=== PATIENT | female | born 1925 | race Caucasian/White ===

== ENCOUNTER 2016-08-04 19:53 | Inpatient (IN) | payer OTHER ==
[2016-08-04] MEDS ORDERED: TYLENOL PO ONE (19:59)
[2016-08-04] MEDS ORDERED: TYLENOL ONE (20:00)
--- NOTE | 2016-08-04 20:15 | PROVIDER DOCUMENTATION ---
HPI-Fever - General Chief Complaint: Fever Stated Complaint: fever Time Seen by Provider: 08/04/16 20:05 Source: patient Allergies/Adverse Reactions: Patient Allergies Allergy/AdvReac Type Severity Reaction Status Date / Time Penicillins Allergy Severe ANAPHYLAXIS Verified 10/29/15 12:57 tetanus and diphtheria Allergy Severe ANAPHYLAXIS Verified 10/29/15 12:57 toxoids [Tetanus&Diphtheria Toxoid] aspirin AdvReac Mild NAUSEA Verified 10/29/15 12:57 Home Medications: Home Medication List Medication Instructions Recorded Confirmed Last Taken Type LISINOpril [Prinivil] 40 mg PO DAILY 08/08/13 11/02/15 11/02/15 05:30 History Bone On Bone 1 each PO DAILY 10/29/15 11/02/15 10/31/15 09:00 History Cholecalciferol (Vitamin D3) 1,000 unit PO DAILY 10/29/15 11/02/15 10/31/15 09: 00 History [Vitamin D3] [place]-3 Fatty Acids/Fish Oil 1 each PO DAILY 10/29/15 11/02/15 10/31/15 09:00 History [[place] 3 1,000 mg Softgel] Omeprazole 40 mg PO DAILY 10/29/15 11/02/15 10/30/15 08:00 History Acetaminophen [Tylenol] 1,000 mg PO Q6H #0 tablet 11/05/15 Unknown Rx Celecoxib [Celebrex] 200 mg PO BID #60 capsule 11/05/15 Unknown Rx Docusate Sodium [Colace] 100 mg PO BID #0 capsule 11/05/15 Unknown Rx Oxycodone I.r. [Oxy Ir] 5 - 10 mg PO Q3H PRN PRN #60 11/05/15 Unknown Rx capsule Pregabalin [Lyrica] 75 mg PO BID #60 capsule 11/05/15 Unknown Rx Rivaroxaban [Xarelto] 10 mg PO Q24H #14 tablet 11/05/15 Unknown Rx Tramadol [Ultram] 100 mg PO Q6H #60 tablet 11/05/15 Unknown Rx - History of Present Illness-Fever Nature of Presenting Problem: Daughter states that pt had a sore throat 3 days ago and was taking DayQuil and NyQuil. Sore throat resolved and pt developed a cough yesterday. Pt took Musinex this morning at 0800. Daughter called around noon to check on pt and pt was shaking. Daughter told her to take a spoon of peanut butter and eat it to see if it would help and pt felt better. Daughter called pt back later this evening around 1800 and states that she did not sound right. Daughter states that she was weak and she could not get up. Fever Severity/Quality: reports: greater than 100.5 F Timing: reports: still present Severity: reports: mild Context: reports: none Recent Illness?: reports: none Cognitive Baseline: alert, oriented x3 Modifying Factors: improves with: nothing Associated Symptoms: reports: fever/chills, weakness Similar Symptoms Previously?: No Recently seen or treated by another doctor?: No Review of Systems - Adult - REVIEW OF SYSTEMS - ADULT Constitutional: reports: fever. denies: chills Eyes: reports: no symptoms reported Ears, Nose, Mouth & Throat: reports: no symptoms reported Cardiovascular: reports: no symptoms reported Respiratory: denies: cough, shortness of breath Gastrointestinal: denies: abdominal pain, nausea, vomiting Genitourinary: denies: dysuria, hematuria Musculoskeletal: reports: muscle weakness. denies: muscle aches Integumentary: denies: skin sores/ulcer, skin thickening Neurological: reports: no symptoms reported Psychiatric: reports: no symptoms reported Endocrine: reports: no symptoms reported Hematologic/Lymphatic: reports: no symptoms reported Allergic/Immunologic: reports: no symptoms reported All Other Systems: Reviewed and Negative Past History - Adult - PAST MEDICAL HISTORY-ADULT Review of Records: reports: Nursing Assessment Review, Medications Reviewed Major Childhood Illnesses: reports: denies history Cardiovascular: reports: HTN Gastrointestinal: reports: GERD Endocrine/Immune: reports: Diabetes, anemia - PRIOR SURGERIES/PROCEDURES Surgical/Procedure History: reports: appendectomy, hysterectomy, tonsillectomy - PRIOR HOSPITALIZATIONS Prior Hospitalizations: reports: none - IMMUNIZATION STATUS Childhood Immunizations: See Nurse Assessment Flu Vaccine: See Nurse Assessment - FAMILY HISTORY Family History: reviewed, not pertinent Physical Exam-General - PHYSICAL EXAM-ADULT Initial Vital Signs Reviewed: Yes - CONSTITUTIONAL General Appearance: appears well, alert, no apparent distress - RESPIRATORY Respiratory: chest non-tender, lungs clear, normal breath sounds - CARDIOVASCULAR Cardiovascular: normal peripheral pulses, regular rate, rhythm, no edema - SKIN Integumentary: normal color, normal turgor, warm/dry - NEUROLOGIC Neurologic: other (facial and upper extremity tremors) - PSYCHIATRIC Psych/Mental Status: normal mood/affect, normal thought content, normal thought process, oriented x 3 Progress - PLAN OF CARE/RESULTS Progress/Plan/Lab Results: plan of care: labs, imaging, medications, EKG Orders Category Date Time Status Cardiac Monitoring DIRECTED Care 08/04/16 20:18 Active Oxygen Therapy- ED Nursing DIRECTED Care 08/04/16 20:18 Active Saline Loc NOW Care 08/04/16 20:18 Active CHEST-2 VIEWS [RAD] Stat Exams 08/04/16 20:18 Taken HEAD W/O CONTRAST [CT] Stat Exams 08/04/16 20:19 Taken XRAY HIP W/PELVIS BILAT 3-4VWS [RAD] Stat Exams 08/04/16 20:46 Taken CBC WITH ELECTRONIC DIFF [HEME] Stat Lab 08/04/16 19:55 Completed CK PROFILE [SP CHEM] Stat Lab 08/04/16 19:55 Completed COMPREHENSIVE METABOLIC PANEL [CHEM] Stat Lab 08/04/16 19:[address] Stat Lab 08/04/16 19:55 Completed MAGNESIUM [CHEM] Stat Lab 08/04/16 19:55 Completed PRO B-NATRIURETIC PEPTIDE Stat Lab 08/04/16 19:[address] Com[address]IME WITH INR [address] [COAG] Stat Lab 08/04/16 19:[address] [COAG] Stat Lab 08/04/16 19:55 Completed TROPONIN T Stat Lab 08/04/16 19:55 Completed UA [URINALYSIS PL W/POSS RFLX CULT] [URINALYSIS] Stat Lab 08/04/16 20:30 Completed URINE CULTURE [RM] Routine Lab 08/04/16 21:13 Ordered Acetaminophen [Tylenol] Med 08/04/16 20:00 Discontinued 650 mg .ROUTE .STK-MED ONE Acetaminophen [Tylenol] Med 08/04/16 19:59 Discontinued 650 mg PO NOW ONE EKG [EKG] Stat Ther 08/04/16 20:18 Draft Laboratory Tests 08/04/16 08/04/16 08/04/16 19:55 19:55 19:55 WBC RBC Hgb Hct MCV MCH MCHC RDW Std Deviation Plt Count MPV Immature Gran % (Auto) Neut % (Auto) Lymph % (Auto) [place] % (Auto) Eos % (Auto) Baso % (Auto) Immature Gran # (Auto) Neut # (Auto) Lymph # (Auto) [place] # (Auto) Eos # (Auto) Baso # (Auto) Segmented Neutrophils Band Neutrophils Lymphocytes Monocytes Atypical Lymphocytes PT INR APTT (Factor Assay) Sodium 132 L Potassium 3.6 Chloride 96 L Carbon Dioxide 23 L Anion Gap 13 BUN 17 Creatinine 0.7 Estimated GFR/1.73 m2 > 60 BUN/Creatinine Ratio 24 Glucose 140 H Calculated Osmolality 268 Calcium 9.6 Magnesium 2.0 Total Bilirubin 0.80 AST 54 H ALT 28 Alkaline Phosphatase 143 H Creatine Kinase 44 Troponin T < 0.010 [id number]-Ftlveotfrlz Pept Total Protein 7.9 Albumin 3.9 Globulin 4.0 Albumin/Globulin Ratio 1.0 Urine Source Urine Color Urine Clarity Urine pH Ur Specific [place] Urine Protein Urine Ketones Urine Blood Urine Nitrite Urine Bilirubin Urine Urobilinogen Urine Microscopic RBC Urine WBC Urine Microscopic WBC Ur Epithelial Cells Urine Crystals Urine Bacteria Urine Casts Urine Yeast Urine Glucose Influenza A (Rapid) NEGATIVE Influenza B (Rapid) NEGATIVE 08/04/16 08/04/16 08/04/16 19:55 19:55 19:55 WBC 18.63 H RBC 3.98 L Hgb 11.4 L Hct 35.3 L MCV 88.7 MCH 28.6 MCHC 32.3 L RDW Std Deviation 14.5 Plt Count 359 MPV 10.1 Immature Gran % (Auto) 0.5 Neut % (Auto) 89.1 H Lymph % (Auto) 4.6 L [place] % (Auto) 5.6 Eos % (Auto) 0.0 Baso % (Auto) 0.2 Immature Gran # (Auto) 0.09 H Neut # (Auto) 16.60 H Lymph # (Auto) 0.86 L [place] # (Auto) 1.04 H Eos # (Auto) 0.00 Baso # (Auto) 0.04 Segmented Neutrophils 90 H Band Neutrophils 2 H Lymphocytes 4 L Monocytes 3 Atypical Lymphocytes 1.0 PT 14.4 INR 1.09 APTT (Factor Assay) 26.6 Sodium Potassium Chloride Carbon Dioxide Anion Gap BUN Creatinine Estimated GFR/1.73 m2 BUN/Creatinine Ratio Glucose Calculated Osmolality Calcium Magnesium Total Bilirubin AST ALT Alkaline Phosphatase Creatine Kinase Troponin T [id number] Pept 1269 H Total Protein Albumin Globulin Albumin/Globulin Ratio Urine Source Urine Color Urine Clarity Urine pH Ur Specific [place] Urine Protein Urine Ketones Urine Blood Urine Nitrite Urine Bilirubin Urine Urobilinogen Urine Microscopic RBC Urine WBC Urine Microscopic WBC Ur Epithelial Cells Urine Crystals Urine Bacteria Urine Casts Urine Yeast Urine Glucose Influenza A (Rapid) Influenza B (Rapid) 08/04/16 20:30 WBC RBC Hgb Hct MCV MCH MCHC RDW Std Deviation Plt Count MPV Immature Gran % (Auto) Neut % (Auto) Lymph % (Auto) [place] % (Auto) Eos % (Auto) Baso % (Auto) Immature Gran # (Auto) Neut # (Auto) Lymph # (Auto) [place] # (Auto) Eos # (Auto) Baso # (Auto) Segmented Neutrophils Band Neutrophils Lymphocytes Monocytes Atypical Lymphocytes PT INR APTT (Factor Assay) Sodium Potassium Chloride Carbon Dioxide Anion Gap BUN Creatinine Estimated GFR/1.73 m2 BUN/Creatinine Ratio Glucose Calculated Osmolality Calcium Magnesium Total Bilirubin AST ALT Alkaline Phosphatase Creatine Kinase Troponin T Oxi-N-Hdavozdjscc Pept Total Protein Albumin Globulin Albumin/Globulin Ratio Urine Source CATH Urine Color YELLOW Urine Clarity CLEAR Urine pH 7.0 Ur Specific [place] 1.010 Urine Protein 2+(100 mg/dL) A Urine Ketones TRACE Urine Blood 4+ Urine Nitrite NEGATIVE Urine Bilirubin NEGATIVE Urine Urobilinogen NORMAL Urine Microscopic RBC 20-40 A Urine WBC TRACE A Urine Microscopic WBC <10 Ur Epithelial Cells <10 Urine Crystals NONE SEEN Urine Bacteria 2+ Urine Casts NONE SEEN Urine Yeast NONE SEEN Urine Glucose NEGATIVE Influenza A (Rapid) Influenza B (Rapid) Vital Signs - 24 hr 08/04/16 08/04/16 08/04/16 19:54 20:41 21:34 Temperature 101.2 F H 100.5 F H 99.5 F Pulse Rate 80 86 74 Respiratory 18 31 H 30 H Rate Blood Pressure 138/54 142/64 O2 Sat by Pulse 94 L 94 L Oximetry Pt/family given results. Pt will be admitted to the hospitalist group. PT/ Family in agreement with plan of care. - EKG 1 Time of EKG reading by physician:: 20:48 EKG Read and Signed by:: Rafael Wilhelm EKG Interpretation (*Must complete 3 of following elements*): Normal Rate: 82 Rhythm: sinus rhythm with premature supraventricular complexes [place]: normal - XRAY 1 XRAY Study: Chest Impression: Abnormal XRAY Interpretation: right lower lobe infiltrate: Dr. Wilhelm(ED MD) - CT/MRI 1 CT Study: Head Impression: Normal (Atrophic changes and chronic-appearing ischemic changes. No definite acute process. No hemorrhage. No mass effect.: Dr. Boston(radiologist )) - CONSULTS/PCP/HOSPITALIST Notification #1 *Consult/PCP/Hospitalist*: Dr. Saab([facility]) Time Discussed: 21:44 Departure - Departure Time of Disposition Order: 21:46 DIAGNOSIS: Pneumonia Qualifiers: Pneumonia type: due to unspecified organism Laterality: right Lung location: lower lobe of lung Qualified Code(s): J18.1 - Lobar pneumonia, unspecified organism Fever Qualifiers: Fever type: unspecified Qualified Code(s): R50.9 - Fever, unspecified UTI (urinary tract infection) Qualifiers: Urinary tract infection type: site unspecified Hematuria presence: with hematuria Qualified Code(s): N39.0 - Urinary tract infection, site not specified Disposition: ADMITTED INPATIENT 09 Certified Medical Emergency: Emergent Condition: Stable Referrals: None,PCP [Primary Care Provider] - Attestation - Scribe Verification/Attestation Scribe:: Kimberley Albarran Acting as Scribe for:: Rafael Wilhelm Scribe documention review:: This chart was documented by a scribe and accurately reflects the service the provider performed and the decisions made by the provider. Physician Attestation - Physician Attestation I, the provider, attest to the following statement:: Rafael Wilhelm Physician documentation Attestation:: This documentation recorded by the scribe accurately reflects the service I personally performed and the decisions made by me.
[2016-08-04 20:43] LABS: URINE SOURCE CATH
[2016-08-04 20:50] LABS: BASO% 0.2 % (0.0-0.8); HEMATOCRIT 35.3 % (37.0-47.0); HEMOGLOBIN 11.4 g/dL (12.0-16.0); IMM GRAN# 0.09 X1000 (0.0-0.04); IMM GRAN% 0.5 % (0.0-0.5); LYMPH# 0.86 X1000 (1.2-3.4); LYMPH% 4.6 % (20.5-51.1); MANUAL DIFF NEEDED? YES; MCH 28.6 PG (27-31); MCHC 32.3 g/dL (33-37); MCV 88.7 FL (81-99); MONO# 1.04 X1000 (0.11-0.59); MONO% 5.6 % (1.7-9.3); MPV 10.1 FL (7.4-10.4); NEUT% 89.1 % (42.2-75.2); PLT 359 X1000 (130-400); RBC 3.98 XMIL (4.2-5.4)
[2016-08-04 20:52] LABS: AGAP 13; ALBUMIN 3.9 g/dL (3.5-5.0); ALKALINE PHOSPHATASE 143 U/L (32-104); BUN 17 mg/dL (8-22); CALCIUM 9.6 mg/dL (8.8-10.2); CHLORIDE 96 mmol/L (98-107); CK PROFILE 44 U/L (24-173); COSMO 268; GOT 54 U/L (10-30); GPT 28 U/L (10-36); POTASSIUM 3.6 mmol/L (3.5-5.1); SODIUM 132 mmol/L (136-145); TCO2 23 mmol/L (25-35); TOTAL PROTEIN 7.9 g/dL (6.3-8.3)
--- NOTE | 2016-08-04 21:00 | EKG Report ---
Test Performed on : 08/04/2016 8:48:28 PM Test Reason : CHEST PAIN Blood Pressure : / mmHG Vent. Rate : 082 BPM Atrial Rate : 082 BPM P-R Int : 146 ms QRS Dur : 086 ms QT Int : 398 ms P-R-T Axes : 047 050 043 degrees QTc Int : 464 ms Sinus rhythm. with premature supraventricular complexes. Otherwise normal ECG When compared with ECG of 29-OCT-2015 13:41, premature supraventricular complexes. are now present Unconfirmed Result
[2016-08-04 21:01] LABS: BANDS 2 % (0-1); LYMPHS 4 % (21-51); MONO 3 % (1-9)
[2016-08-04 21:08] LABS: BILIRUBIN URINE NEGATIVE (NEGATIVE); BLOOD URINE 4+ (NEGATIVE); CLARITY CLEAR (CLEAR); COLOR YELLOW; GLUCOSE URINE NEGATIVE (NEGATIVE); LEUKOCYTES URINE TRACE (NEGATIVE); NITRITE URINE NEGATIVE (NEGATIVE); PROTEIN URINE 2+(100 mg/dL) mg/dL (NEGATIVE); UROBILINOGEN URINE NORMAL
[2016-08-04 21:11] LABS: INR 1.09 (0.86-1.15); PROTIME 14.4 Seconds (12.1-15.5)
[2016-08-04 21:12] LABS: PTT PL 26.6 Seconds (22.6-43.9)
[2016-08-04 21:13] LABS: URINE CAST NONE SEEN /LPF; URINE CRYSTAL NONE SEEN /HPF; URINE CULTURE PL NEEDED? YES; URINE EPITHELIAL CELLS <10 /HPF (<10); URINE RBC 20-40 /HPF (<10); URINE WBC <10 /HPF (<10)
[2016-08-04] MEDS ORDERED: LEVAQUIN 750 MG in NS 150 ML IV ONE (21:44)
[2016-08-04] MEDS ORDERED: LEVAQUIN 750 MG in NS 150 ML IV SCH (22:00)
[2016-08-04] MEDS ORDERED: LEVAQUIN 750 MG/D5W 150 ML ONE (22:03)
--- NOTE | 2016-08-04 22:44 | Diag Imaging Result Document ---
PROCEDURE NAME: HEAD W/O CONTRAST - 08/04/2016 CT BRAIN WITHOUT CONTRAST: TECHNIQUE: Dose reduction protocol. FINDINGS: No parenchymal hemorrhage. No epidural or subdural hematoma. No subarachnoid hemorrhage. There is atrophy with chronic microvascular ischemic changes. No mass identified on this noncontrasted exam. No sinus opacification. No air-fluid levels. IMPRESSION: 1. No hemorrhage. 2. Atrophy with chronic microvascular ischemic changes. A preliminary report was given at 8:19 p.m.
[2016-08-04] MEDS: NS 1,000 ML IV SCH (23:33)
[2016-08-04] MEDS ORDERED: BLISTEX MEDICATED BERRY LIP BALM TOP ONE (23:36)
--- NOTE | 2016-08-05 06:24 | Diag Imaging Result Document ---
PROCEDURE NAME: CHEST-2 VIEWS - 08/04/2016 FRONTAL AND LATERAL CHEST, 2 VIEWS: COMPARISON: 08/08/2013. FINDINGS: The lungs are well expanded. There is an increased AP diameter to the chest. Heart is not enlarged. The pulmonary vessels are not distended. No pleural effusions. No pneumonia. IMPRESSION: I believe the patient has emphysema.
--- NOTE | 2016-08-05 07:40 | Diag Imaging Result Document ---
PROCEDURE NAME: XRAY HIP W/PELVIS BILAT 3-4VWS - 08/04/2016 PELVIS AND BILATERAL HIPS, FIVE VIEWS: FINDINGS: There has been prior orthopaedic surgery to the left hip. Neither hip is dislocated. No fracture to either hip. No separation at the pubic symphysis. IMPRESSION: No acute bony injury.
[2016-08-05] MEDS ORDERED: TYLENOL PO PRN (10:23)
[2016-08-05] MEDS: NS 1,000 ML IV SCH ×2 (10:49→13:22)
[2016-08-05] MEDS: VITAMIN D PO SCH (10:50)
[2016-08-05] MEDS: PRINIVIL PO SCH (10:50)
[2016-08-05] MEDS: COLACE PO SCH ×2 (10:50→21:22)
[2016-08-05] MEDS: FISH OIL CONCENTRATE PO SCH (10:50)
--- NOTE | 2016-08-05 13:21 | HISTORY AND PHYSICAL ---
PRIMARY CARE PHYSICIAN: Mike Kirkland MD. CHIEF COMPLAINT: Sore throat, cough, subjective fever and chills that have been present on and off for the past week. Also, some burning with urination. HISTORY OF PRESENTING ILLNESS: This is an 89-year-old, female, who presented to [facility] ER with complaints of a subjective fever, chills, cough, sore throat that has been on and off for the past week. Also some pain with urination. Workup in the ER when she arrived, showed a temperature of 101.2, saturating 94% on room air. White blood cell count was 18.63. Sodium was 132. Urinalysis showed a trace of white blood cells, and 2+ bacteria. Influenza A and B were both negative. Chest x-ray per ER physician interpretation showed a right lower lobe pneumonia. She was admitted for further evaluation and treatment. PAST MEDICAL HISTORY: Hypertension, GERD, diabetes type 2 and anemia. PAST SURGICAL HISTORY: Left knee arthroplasty, a D and C, tonsil and adenoidectomy. Hysterectomy, appendectomy and cataract surgery. FAMILY HISTORY: Noncontributory. SOCIAL HISTORY: She currently lives with family. Denies any tobacco, alcohol, or illicit drug use. ALLERGIES: Penicillin. Tetanus and diphtheria toxoid and aspirin. HOME MEDICATIONS: She takes vitamin D3 1000 units p.o. daily, Colace 100 mg p.o. b.i.d., lisinopril 40 mg p.o. daily. Meloxicam 15 mg p.o. daily, we will hold; and omega-3 1000 mg soft gel 1 p.o. daily. LABORATORY DATA: Showed a white blood cell count of 18.63, hemoglobin 11.4, hematocrit 35.3, platelets 359. PT and INR of 14.4 and 1.09. Sodium of 132, potassium 3.6, chloride 96, CO2 of 23, BUN of 17, creatinine 0.7, glucose 140, magnesium of 2. AST of 54, ALT 28, alkaline phosphatase 143. Troponin less than 0.010. Pro BNP of 1269. Urinalysis showed negative nitrites, trace of white blood cells, 4+ blood, 2+ bacteria. Influenza A and B were both negative. Chest x-ray per ER interpretation physician, was right lower lobe pneumonia. Radiology read, showed the patient is believed to have emphysema. Head CT showed no hemorrhage, atrophy with chronic microvascular ischemic changes. Bilateral hip and pelvic x-ray showed no acute bony injury. REVIEW OF SYSTEMS: She was positive for subjective fever, chills, body aches, sore throat, cough that is productive of yellow sputum, pain with urination. Denied any abdominal pain, nausea, vomiting, constipation, diarrhea. PHYSICAL EXAMINATION: VITAL SIGNS: Temperature on arrival was 101.2 with a pulse of 80, respirations 18, blood pressure 138/54, saturating 94% on room air. Currently, she has a temperature of 98.4, pulse 65, respirations 20, blood pressure 133/54, saturating 97% on room air. GENERAL: This is an 89-year-old, female who is lying in the bed, and answers questions appropriately. HEENT: Normocephalic and atraumatic. Pupils are equal, round, reactive to light. Extraocular movements are intact. Oropharynx and nares are clear. NECK: Supple. LUNGS: Clear to auscultation bilaterally with equal lung expansion and chest wall movement. HEART: With regular rate and rhythm. No murmurs, rubs, or gallops. ABDOMEN: Soft, nontender, nondistended. Bowel sounds are present x4 quadrants. EXTREMITIES: There is no clubbing, cyanosis, or edema. NEUROLOGICAL: The cranial nerves 2-12 are grossly intact. ASSESSMENT: 1. Right lower lobe pneumonia per ER interpretation of chest x-ray. 2. Leukocytosis. 3. Urinary tract infection. 4. Hyponatremia. PLAN: She was admitted to the medical unit at [facility]. Placed on telemetry. Daily weights. Neuro checks q.4 hours for 24 hours. Healthy heart diet. We are checking a urine culture. We will check blood cultures x2. She was placed on Levaquin 750 mg IV q.24. Normal saline at 80 mL an hour. Continue her home medications as previously identified. We will give Tylenol 650 p.o. q.4 p.r.n. fever and recheck a CBC and a CMP in the a.m. Dictated by BEVERLY Najera for Ortega Saab MD
[2016-08-05] MEDS: RESTORIL PO PRN (21:22)
[2016-08-05] MEDS: LEVAQUIN 750 MG/D5W 150 ML IV SCH (22:33)
[2016-08-06] MEDS: NS 1,000 ML IV SCH (03:42)
[2016-08-06 05:39] LABS: MANUAL DIFF NEEDED? NO
[2016-08-06 06:08] LABS: BASO% 0.1 % (0.0-0.8); EOS# 0.03 X1000 (0.0-0.7); EOS% 0.2 % (0.0-10.0); HEMATOCRIT 28.4 % (37.0-47.0); HEMOGLOBIN 8.9 g/dL (12.0-16.0); IMM GRAN# 0.03 X1000 (0.0-0.04); IMM GRAN% 0.2 % (0.0-0.5); LYMPH# 1.42 X1000 (1.2-3.4); LYMPH% 11.4 % (20.5-51.1); MCH 27.8 PG (27-31); MCHC 31.3 g/dL (33-37); MCV 88.8 FL (81-99); MONO# 1.36 X1000 (0.11-0.59); MONO% 10.9 % (1.7-9.3); NEUT% 77.2 % (42.2-75.2); PLT 297 X1000 (130-400)
[2016-08-06 06:10] LABS: AGAP 9; ALKALINE PHOSPHATASE 132 U/L (32-104); BUN 14 mg/dL (8-22); CALCIUM 8.4 mg/dL (8.8-10.2); CHLORIDE 104 mmol/L (98-107); COSMO 270; GOT 43 U/L (10-30); GPT 41 U/L (10-36); POTASSIUM 3.3 mmol/L (3.5-5.1); SODIUM 135 mmol/L (136-145); TCO2 21 mmol/L (25-35)
--- NOTE | 2016-08-06 07:47 | Diag Imaging Result Document ---
PROCEDURE NAME: CHEST-PORTABLE - 08/06/2016 PORTABLE CHEST: COMPARISON: 08/04/2016. FINDINGS: Heart size appears upper range of normal. There is mild interstitial marking prominence. There is no dense consolidation, pleural effusion, or pneumothorax identified. IMPRESSION: Mild interstitial marking prominence. No dense consolidation.
[2016-08-06] MEDS: FISH OIL CONCENTRATE PO SCH (08:39)
[2016-08-06] MEDS: PRINIVIL PO SCH (08:39)
[2016-08-06] MEDS: VITAMIN D PO SCH (08:39)
[2016-08-06] MEDS: COLACE PO SCH ×3 (08:39→22:14)
[2016-08-06] MEDS ORDERED: SALINE LOCK IV FLUID XX ONE (16:44)
--- NOTE | 2016-08-06 17:32 | PROGRESS NOTE ---
DATE: 08/06/2016 SUBJECTIVE: Patient has no focal complaints. OBJECTIVE: Blood pressure 175/58, heart rate of 56, respiratory rate 24, temperature 98.2 degrees, 99% saturation on room air.Cardiovascular: Regular rate and rhythm. Pulmonary: Bilateral breath sounds. Clear to auscultation. GI: Soft, nontender, nondistended. Bowel sounds are positive. LABORATORY DATA: White count down to 12. Hemoglobin and hematocrit of 8 and 28. Chemistries: Her AST and ALT are still up a little bit. Unclear source. PROBLEM LIST: 1. UTI. We will continue empiric antibiotics. 2. Elevated liver enzymes. Unclear etiology. Repeat her liver enzymes and follow. DISPOSITION: Possibly home tomorrow. We will remove Renae and encourage ambulation and we will go from there.
[2016-08-06] MEDS: RESTORIL PO PRN (22:14)
[2016-08-06] MEDS: LEVAQUIN 750 MG/D5W 150 ML IV SCH (22:15)
[2016-08-07 06:52] LABS: HEMATOCRIT 29.1 % (37.0-47.0); HEMOGLOBIN 9.3 g/dL (12.0-16.0); MCH 28.3 PG (27-31); MCV 88.4 FL (81-99); MPV 10.2 FL (7.4-10.4); RBC 3.29 XMIL (4.2-5.4)
[2016-08-07 07:32] LABS: AGAP 8; ALBUMIN 2.8 g/dL (3.5-5.0); ALKALINE PHOSPHATASE 198 U/L (32-104); BUN 12 mg/dL (8-22); CALCIUM 8.6 mg/dL (8.8-10.2); CHLORIDE 103 mmol/L (98-107); COSMO 268; GOT 61 U/L (10-30); GPT 57 U/L (10-36); SODIUM 134 mmol/L (136-145); TCO2 23 mmol/L (25-35); TOTAL PROTEIN 6.2 g/dL (6.3-8.3)
[2016-08-07] MEDS: PRINIVIL PO SCH (08:42)
[2016-08-07] MEDS: VITAMIN D PO SCH (08:42)
[2016-08-07] MEDS: COLACE PO SCH ×2 (08:42→22:00)
[2016-08-07] MEDS: FISH OIL CONCENTRATE PO SCH (08:42)
[2016-08-07] MEDS ORDERED: KLOR-CON PO ONE (14:54)
--- NOTE | 2016-08-07 18:25 | PROGRESS NOTE ---
DATE: 08/07/2016 SUBJECTIVE: Patient resting quietly in bed. States, "I would be okay if I could just walk". OBJECTIVE: Vital Signs: Temperature 97.5 degrees, pulse 56, respirations 18, blood pressure 166/52, saturating 99% on room air. General: This is an 89-year-old female lying in the bed, and answers questions appropriately. HEENT: Normocephalic and atraumatic. Pupils are equal, round, reactive to light. Extraocular movements are intact. Oropharynx and nares are clear. Neck: Supple. Lungs: Clear to auscultation bilaterally with equal lung expansion and chest wall movement. Heart: With regular rate and rhythm. No murmurs, rubs, or gallops. Abdomen: Soft, nontender, nondistended. Bowel sounds are present x4 quadrants. Extremities: No clubbing, cyanosis, or edema. Neurological: The cranial nerves 2-12 appear grossly intact. LABORATORY DATA: White blood cell count of 9.81, hemoglobin 9.3, hematocrit 29.1, platelets 321,000, sodium 134, potassium 3, chloride 103, CO2 23, BUN of 12, creatinine 0.6, glucose 102, AST of 61, ALT 57, alkaline phosphatase 198. Urine culture showed enterococcus faecalis, group D, but it is sensitive to the Levaquin that she has been receiving. ASSESSMENT AND PLAN: 1. Enterococcus faecalis urinary tract infection. We will continue her antibiotics and follow. 2. Elevated liver enzymes. They continue to slowly rise, so we will check a right upper quadrant abdominal ultrasound in the a.m., nothing per oral after midnight and recheck a complete metabolic panel in the a.m. 3. Hypokalemia. We will supplement and recheck labs in the a.m. 4. Generalized weakness. We will have physical therapy to evaluate and treat. Staff states that when they tried to get her up, her legs buckled from under her and she had difficulty ambulating, so we will have that evaluated by physical therapy. DISPOSITION: Home hopefully in the next 1-2 days. Dictated by BEVERLY Najera for Ortega Saab MD
[2016-08-07] MEDS: LEVAQUIN 750 MG/D5W 150 ML IV SCH (22:00)
[2016-08-07] MEDS: RESTORIL PO PRN (22:00)
[2016-08-08 06:34] LABS: MANUAL DIFF NEEDED? NO
[2016-08-08 06:48] LABS: BASO% 0.2 % (0.0-0.8); EOS# 0.12 X1000 (0.0-0.7); EOS% 1.4 % (0.0-10.0); HEMATOCRIT 28.3 % (37.0-47.0); IMM GRAN# 0.06 X1000 (0.0-0.04); IMM GRAN% 0.7 % (0.0-0.5); LYMPH# 1.37 X1000 (1.2-3.4); LYMPH% 15.9 % (20.5-51.1); MCH 28.2 PG (27-31); MCHC 31.8 g/dL (33-37); MCV 88.7 FL (81-99); MONO# 0.85 X1000 (0.11-0.59); MONO% 9.9 % (1.7-9.3); NEUT% 71.9 % (42.2-75.2); PLT 336 X1000 (130-400); RBC 3.19 XMIL (4.2-5.4)
[2016-08-08 07:19] LABS: AGAP 9; ALBUMIN 2.5 g/dL (3.5-5.0); ALKALINE PHOSPHATASE 200 U/L (32-104); BUN 16 mg/dL (8-22); CALCIUM 8.5 mg/dL (8.8-10.2); CHLORIDE 103 mmol/L (98-107); COSMO 268; GOT 37 U/L (10-30); GPT 45 U/L (10-36); POTASSIUM 3.6 mmol/L (3.5-5.1); SODIUM 133 mmol/L (136-145); TCO2 22 mmol/L (25-35); TOTAL PROTEIN 5.9 g/dL (6.3-8.3)
[2016-08-08] MEDS: COLACE PO SCH ×2 (08:58→21:12)
[2016-08-08] MEDS: PRINIVIL PO SCH (08:58)
[2016-08-08] MEDS: FISH OIL CONCENTRATE PO SCH (08:58)
[2016-08-08] MEDS: VITAMIN D PO SCH (08:58)
--- NOTE | 2016-08-08 11:25 | PROGRESS NOTE ---
DATE: 08/08/2016 SUBJECTIVE: The patient is resting quietly in bed. She is NPO for right upper quadrant ultrasound. She continues to state that she is unable to walk. She is unable to hold her weight up. She denies any chest pain, dizziness, palpitations, any shortness of breath. OBJECTIVE: Vital Signs: Blood pressure is 136/50, with a heart rate of 56, respirations are 16, temperature is 98.5 degrees oral, with room air saturations of 98%. Cardiovascular: Regular rate and rhythm. S1 and S2 are appreciated. Pulmonary: Breath sounds are clear. Chest rises and falls symmetrically with respiration. No increased work of breathing noted. Gastrointestinal: Abdomen is soft, nontender, nondistended. Bowel sounds in all 4 quadrants. Extremities: No clubbing, cyanosis, or edema. Calves are nontender. Pulses are palpable x4. Neurologic: She is alert and oriented x3. Cranial nerves 2 through 12 grossly intact. LABS: WBC is 8.5 with hemoglobin 9, hematocrit 28.3, and platelets of 336,000. Sodium is 133, potassium 3.6, BUN 16, creatinine 0.5, with a glucose of 110. LFTs: AST is 37 , ALT is 45, and alkaline phosphatase is 200. Total bilirubin is 0.80. Ultrasound right upper quadrant is pending. ASSESSMENT AND PLAN: 1. Enterococcus faecalis urinary tract infection. We will continue her antibiotics. 2. Elevated liver function tests. Right upper quadrant ultrasound is pending. 3. Hypokalemia. We will re-supplement and trend labs. 4. Generalized weakness. She still has not been able to stand. She states her legs will not hold her up. Physical therapy evaluation is pending. We will get orthostatics vital signs. We will consult social work administrator to look at rehab placement. Dictated by BEVERLY Marin for Ortega Saab MD pt examined, agree with above, likely will need rehab, awaiting PT consult, will transition to oral abx, per sensitivities APENOT MTDD
--- NOTE | 2016-08-08 14:30 | Diag Imaging Result Document ---
PROCEDURE NAME: US GB < RUQ (LIMITED) - 08/08/2016 RIGHT UPPER QUADRANT ULTRASOUND: FINDINGS: The visualized portion of the pancreas, aorta, and inferior vena cava are within normal limits. There is a 1.3 cm cyst near the body of the pancreas. The liver is unremarkable. There is antegrade flow in the portal vein. There is no evidence of biliary dilatation. The common bile duct measures less than 2 mm. There are stones in the gallbladder layering dependently up to 1.2 cm in size. There is no sonographic Blevins's sign, pericholecystic fluid, or wall thickening. The right kidney is without evidence of hydronephrosis or mass. There are no abnormal fluid collections. Compared to the previous CT of the abdomen dated 02/07/2012 the pancreas was previously fairly atrophic in appearance with what might have been a cyst in the area of the body of the pancreas measuring up to 12 mm. IMPRESSION: 1. No evidence of acute disease. 2. Cholelithiasis.
[2016-08-08] MEDS: RESTORIL PO PRN (21:12)
--- NOTE | 2016-08-08 21:23 | CONSULTATION ---
DATE OF CONSULTATION: 08/08/2016 HISTORY OF PRESENT ILLNESS: This is an 89-year-old female who presented to the hospital service with fevers and general malaise. She was found to have possible pneumonia and a urinary tract infection. She has been treated with antibiotics for this, has rapidly improved and is doing well. She denies any abdominal pain. No jaundice. No fevers. She did have during her stay some mild elevation in her alkaline phosphatase prompting a right upper quadrant ultrasound that showed gallstones obtained today that showed no evidence of cholecystitis nor biliary dilation. It did demonstrate a 1.3 cm cyst in bile duct of pancreas. When the radiologist compared it to a scan from 2012 the pancreas was very atrophic at that time and visualized what could correspond to this previous cyst measuring up to 12 mm. PAST MEDICAL HISTORY: 1. Hypertension. 2. GERD. 3. Diabetes type 2. 4. Anemia. PAST SURGICAL HISTORY: 1. Left knee arthroplasty. 2. D and C. 3. Tonsillectomy and adenoidectomy. 4. Hysterectomy. 5. Appendectomy. 6. Cataract surgery. REVIEW OF SYSTEMS: Ten point review of systems negative except for what is mentioned in her HPI. SOCIAL HISTORY: She lives with her and son. Her daughter lives nearby. No tobacco, alcohol or drugs. MEDICATIONS: Not significant for anticoagulants. PHYSICAL EXAMINATION: Vital Signs: Temperature 97.6 degrees, pulse 64, blood pressure 158/59, O2 saturation 100% on room air. General: She is alert, in no acute distress. HEENT: No scleral icterus. Cardiovascular: Normal rate. Regular rhythm. Pulmonary: No increased work of breathing. Abdomen: Soft, nontender, nondistended. There is an umbilical incision with a small reducible umbilical hernia. Integumentary: Otherwise warm and dry without jaundice. No lower extremity edema. LABS: White count is normal at 8, hematocrit 28, platelets 336. Her sodium is low at 133, creatinine is normal at 0.5, bilirubin is normal at 0.8, AST is 37 and has been as high as 61 during admission but is down now, ALT 45 as high as 57, alkaline phosphatase 200 , troponins were normal on admission. Albumin is 2.5, lipase normal at 11, amylase normal at 22. ASSESSMENT/PLAN: An 89-year-old female admitted with urinary tract infection to the Hospitalist service. She is clinically improving from this. She had a mild elevation in her alkaline phosphatase and just above upper limits of her transaminases and stones done on her gallbladder. Bilirubin is normal. It has not fluctuated on admission. Ultrasound shows gallstones but no evidence of cholecystitis. CT scan shows very atrophic pancreas. Formal read is pending. I reviewed her scan from 2011 and there is the possibility of a neck of the pancreas cyst but it is very small. I do not see any changes or progression of this on her scan today and I do not see any other acute pathology other than her known gallstones. We talked to the patient. She seems to be completely asymptomatic from these stones. Given her other medical issues I think cholecystectomy is not indicated at this time. I have given her my contact information. I discussed the natural history of gallstones and discussed symptoms with her. If she develops these, she will call. Otherwise I will see her in a month after she resolves her acute illness. PLAN:Plan is to send her to rehabilitation soon and we can discuss further care at that time although I think the likelihood of her requiring cholecystectomy is very low. I have discussed this with Dr. Saab and the hospitalist service. We will continue to monitor while she is here but I think they are making arrangements for her to go to rehabilitation soon. We will continue to follow along. [facility] HOSPITALCarroll
[2016-08-08] MEDS ORDERED: PRINIVIL PO ONE (22:23)
--- NOTE | 2016-08-09 06:30 | Diag Imaging Result Document ---
PROCEDURE NAME: ABDOMEN/PELVIS W/CONTRAST - 08/08/2016 CT ABDOMEN AND PELVIS WITH ORAL AND INTRAVENOUS CONTRAST: COMPARISON: Compared to 02/07/2012. TECHNIQUE: Dose-reduction protocol. FINDINGS: There are tiny bilateral pleural effusions measuring less than 1 cm posteriorly and inferiorly in the midline. Mild basilar atelectasis. There are multiple calcified stones within the gallbladder. No focal hepatic abnormality. The spleen is not enlarged. There is fatty infiltration of the pancreas. No distinct mass or adjacent inflammation. The left adrenal gland is enlarged measuring at least 2.4 cm. This is slightly larger than on the prior study. Normal right adrenal gland. There are several tiny hypodense renal lesions believed to be cysts in addition to several small renal stones. No hydronephrosis. Prominent atherosclerosis. The main left renal artery goes behind the aorta. This is a normal variant. Prominent stool throughout the colon. No inflammation about the cecum. No abscess. The urinary bladder is distended and appears normal, although there are several air bubbles within it. This could be due to recent instrumentation. The uterus has been removed. No pelvic mass. There has been prior orthopedic surgery to the left hip. IMPRESSION: 1. Tiny pleural effusions with basilar atelectasis. 2. Cholelithiasis. 3. Prominent left adrenal gland. 4. Constipation. 5. Renal cysts and nonobstructing renal stones. 6. Hysterectomy. 7. Although the urinary bladder is distended, there is a small amount of air within it. A preliminary report was given at 10:11 p.m.
[2016-08-09 07:33] LABS: HEMATOCRIT 28.5 % (37.0-47.0); HEMOGLOBIN 9.3 g/dL (12.0-16.0); MCH 28.6 PG (27-31); MCHC 32.6 g/dL (33-37); MCV 87.7 FL (81-99); MPV 10.1 FL (7.4-10.4); RBC 3.25 XMIL (4.2-5.4)
[2016-08-09 07:48] LABS: AGAP 10; ALBUMIN 2.8 g/dL (3.5-5.0); ALKALINE PHOSPHATASE 199 U/L (32-104); BUN 14 mg/dL (8-22); CALCIUM 8.8 mg/dL (8.8-10.2); CHLORIDE 102 mmol/L (98-107); COSMO 272; GOT 21 U/L (10-30); GPT 32 U/L (10-36); POTASSIUM 3.5 mmol/L (3.5-5.1); SODIUM 135 mmol/L (136-145); TCO2 23 mmol/L (25-35); TOTAL PROTEIN 6.1 g/dL (6.3-8.3)
[2016-08-09] MEDS ORDERED: NORVASC PO SCH (09:00)
[2016-08-09] MEDS: VITAMIN D PO SCH (09:39)
[2016-08-09] MEDS: FISH OIL CONCENTRATE PO SCH (09:39)
[2016-08-09] MEDS: COLACE PO SCH (09:40)
[2016-08-09] MEDS: PRINIVIL PO SCH (09:40)
[2016-08-09 11:23] LABS: HEPATITIS PROFILE ACUTE SEE COMMENTS (())
--- NOTE | 2016-08-09 11:34 | DISCHARGE SUMMARY ---
ADMISSION DATE: 08/04/2016 DISCHARGE DATE: 08/09/2016 DIAGNOSES: 1. Right lower lobe pneumonia. 2. Leukocytosis, resolved. 3. Enterococcus faecalis urinary tract infection. 4. Generalized weakness. 5. Elevated liver function tests. 6. Cholelithiasis with no evidence of cholecystitis nor biliary dilatation. 7. 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 8. Hypertension. 9. Gastroesophageal reflux disease. 10.Diabetes type 2. 11.Anemia. DIAGNOSTICS: 1. Chest x-ray from 08/04/2016 revealed: The lungs are well expanded. There is an increased AP diameter to the chest. The heart is not enlarged. The pulmonary vessels are not distended. No pleural effusions. No pneumonia. Possible emphysema. 2. CT head from 08/04/2016 revealed: No parenchymal hemorrhage. No epidural or subdural hematoma. No subarachnoid hemorrhage. There is atrophy with chronic microvascular ischemic changes. No mass identified on the noncontrasted exam. No sinus opacification. No air fluid levels. IMPRESSION: No hemorrhage. Atrophy with chronic microvascular ischemic changes. 3. Hip and pelvis x-ray from 08/04/2016 revealed: Prior orthopaedic surgery to the left hip. Neither hip is dislocated. No fracture to either hip. No separation at the pubic symphysis. IMPRESSION: No acute bony injury. 4. Chest x-ray from 08/06/2016: Heart size appears upper range of normal. There is mild interstitial marking prominence. There is no dense consolidation, pleural effusion, or pneumothorax identified. IMPRESSION: Mild interstitial marking prominence. No dense consolidation. 5. Abdominal ultrasound from 08/08/2016: The visualized portion of the pancreas, aorta, and inferior vena cava are within normal limits. There is a 1.3 cm cyst near the body of the pancreas. The liver is unremarkable. There is antegrade flow in the portal vein. No evidence of biliary dilatation. The common bile duct measures less than 2 mm. There are stones in the gallbladder layering dependently up to 1.2 cm in size. There is no sonographic Blevins's sign, pericholecystic fluid, or wall thickening. The right kidney is without evidence of hydronephrosis or mass. There are no abnormal fluid collections. Compared to the previous CT of the abdomen dated 02/07/2012 the pancreas was previously fairly atrophic in appearance with what might have been a cyst in the area of the body of the pancreas measuring up to 12 mm. IMPRESSION: No evidence of acute disease. Cholelithiasis. 6. CT of the abdomen and pelvis with IV contrast and oral contrast from 08/08/2016: There are tiny bilateral pleural effusions measuring less than 1 cm posteriorly and inferiorly in the middle. Mild basilar atelectasis. There are multiple calcified stones within the gallbladder. No focal hepatic abnormality. The spleen is not enlarged. Fatty infiltration of the pancreas. No distinct mass or adjacent inflammation. Left adrenal gland is enlarged measuring 2.4 cm, slightly larger than on the prior study. Normal right adrenal gland. There are several tiny hypodense renal lesions believed to be cysts in addition to several small renal stones. No hydronephrosis. Prominent atherosclerosis. The main left renal artery goes behind the aorta which is a normal variant. IMPRESSION: Tiny pleural effusions with basilar atelectasis. Cholelithiasis. Prominent left adrenal gland. Constipation. Renal cysts and nonobstructing stones. Hysterectomy. CONSULTATIONS: Dr. Charlie De La Garza. MICROBIOLOGY: Urine culture revealed Enterococcus faecalis. HOSPITAL COURSE: Ms. Gould presented to the hospital with fevers and general malaise. She was found to have pneumonia and a UTI for which she was given Levaquin and she has rapidly improved. She has had no abdominal pain, jaundice, or fevers. During her stay she did show a mild elevation in her alkaline phosphatase which prompted a right upper quadrant ultrasound that showed gallstones with no evidence of cholecystitis or biliary dilatation. It did show a 1.3 cm cyst in the bile duct of the pancreas. When compared to a scan in 2012 the pancreas was very atrophic at that time. Therefore, Dr. De La Garza was consulted and a CT of the abdomen and pelvis was ordered. This also showed a very atrophic pancreas. Dr. De La Garza felt that there was a possibility of a neck of the pancreas cyst but it was very small. He did not see any changes or progression on the scan today. He felt that she is asymptomatic from gallstones and that a cholecystectomy is not indicated at this time. He recommends that she go to rehab, regain her strength, and she can follow up on an outpatient basis in a month or so to revisit the status of her gallstones. Her white count was 18 on admission and it is 7.9 today. She has remained afebrile. During the hospitalization we did trend her labs. We trended her electrolytes and repleted as necessary. As stated before she did have a urinary tract infection for which she was covered with Levaquin. She does have a history of hypertension. We did continue her medication, although she was n.p.o. for an ultrasound yesterday. Her blood pressures did rise. She was given her dose of lisinopril last night at 10 o'clock and pressures did begin to normalize after being medicated. She has been on a regular diet and eating 50%-100% of her meals. She has had multiple soft formed stools. Her abdomen is soft and nontender. She was evaluated by Physical Therapy who did recommend inpatient rehab to address functional mobility deficits. We did trend her blood sugars and they were in the 90 to 140 range. DISCHARGE PHYSICAL ASSESSMENT: CARDIOVASCULAR: Regular rate and rhythm. S1 and S2 are appreciated. PULMONARY: Breath sounds are clear. Chest rises and falls symmetrically with respiration. No increased work of breathing noted. GASTROINTESTINAL: The abdomen is soft, nontender, and nondistended with bowel sounds in all four quadrants. NEUROLOGIC: She is alert and oriented times 4. EXTREMITIES: No clubbing, cyanosis, or edema. Pulses are palpable and calfs are nontender. SKIN: Warm and dry. DISCHARGE VITAL SIGNS: Blood pressure is 123/43 with a heart rate of 54. Respirations are 18. Temperature is 97.4 oral with room air saturations of 96%. ORTHOSTATIC VITAL SIGNS: Supine blood pressure is 123/43 with a heart rate of 54. Sitting blood pressure is 140/56 with a heart rate of 59. Standing blood pressure is 154/54 with a heart rate of 62. DISCHARGE ACTIVITY: Discharge activity will be per Physical Therapy and rehab protocol. DISCHARGE DIET: Diabetic. DISCHARGE MEDICATION: 1. Tylenol 650 mg every 4 hours p.r.n.. 2. Levaquin 500 mg at bedtime for 5 days. 3. Restoril 15 mg at bedtime as needed for sleep. 4. Vitamin D3 1,000 units daily. 5. Colace 100 mg b.i.d.. 6. Lisinopril 40 mg daily. 7. [place]ham-3 1,000 mg daily. FOLLOW UP: 1. She needs to follow up with Dr. Charlie De La Garza in 4-6 weeks regarding cholelithiasis. 2. She is to follow up with her primary care physician within 1-2 weeks of discharge from rehab. DISPOSITION: She is being discharged to rehab in stable condition via EMS transport. DISCHARGE TIME: This is a greater than 30 minute discharge from 9:45 to 10:20. Dictated by BEVERLY Mairn for Fletcher Zelaya MD
[2016-08-09 11:42] VITALS: BP 124/45
[2016-08-09] MEDS ORDERED: LEVAQUIN PO SCH (21:00)
--- NOTE | 2016-09-04 14:30 | DISCHARGE SUMMARY ---
ADMISSION DATE: 08/04/2016 DISCHARGE DATE: 08/09/2016 DISCHARGE SUMMARY ADDENDUM: Sepsis secondary to Enterococcus faecalis urinary tract infection.
== END 2016-08-09 14:27 | DRG 871 ==
LOC: P.ED 19:53 → P.MEDSURG 21:46
PROVIDERS: ATTEND Family Medicine
DX: A41.9 Sepsis, unspecified organism (principal); J18.9 Pneumonia, unspecified organism; E11.9 Type 2 diabetes mellitus without complications; N39.0 Urinary tract infection, site not specified; E87.1 Hypo-osmolality and hyponatremia; D64.9 Anemia, unspecified; I10 Essential (primary) hypertension; K83.5 Biliary cyst; B95.2 Enterococcus as the cause of diseases classified elsewhere; E87.6 Hypokalemia; K80.20 Calculus of gallbladder without cholecystitis without obstruction; K42.9 Umbilical hernia without obstruction or gangrene; K21.9 Gastro-esophageal reflux disease without esophagitis; Z79.899 Other long term (current) drug therapy
CPT/HCPCS: 51702; 70450; 71010; 71020; 73522; 74177; 76705; 80048; 80053; 80074; 80076; 81001; 82150; 82550; 83690; 83735; 83880; 84484; 85025; 85027; 85610; 85730; 87077; 87088; 87186; 87804; 93005; 94761; 94799; 96365; J7030; Q9967